=== PATIENT | female | born 1975 | race Caucasian/White ===

== ENCOUNTER 2022-08-03 09:12 | Emergency (ER) | payer BC, SELFPAY ==
[2022-08-03 09:45] VITALS: BP 114/81; PULSE 81; RESP 21; TEMP 37.1; O2SAT 100; BMI 27.5
[2022-08-03 10:18] VITALS: BP 114/81; PULSE 81; RESP 21; TEMP 37.1; O2SAT 100
--- NOTE | 2022-08-03 10:19 | EXP.UTC ---
Discharge Plan Disposition Patient Disposition: Home, Self-Care Condition: Good Prescriptions Prescriptions: New polymyxin B sulf-trimethoprim [Polytrim] 10,000 unit- 1 mg/mL drops 2 drp ophthalmic (eye) Q6H 7 Days Qty: 10 0RF Rx Instructions: right eye while awake; do not exceed 6 doses in 24 hours No Action hydroxyzine HCl 25 mg tablet 25 mg PO DAILY Label Comments: TAKE 1 TABLET BY MOUTH THREE TIMES DAILY Referrals Follow up/Referrals: Jace Langley [Primary Care Provider] - See instructions Activity Restrictions/Add. Instructions Additional Instructions/Restrictions: Use drops as prescribed Wash hands before and after applying drops to eyes Follow up with your Eye Doctor if no improvement or any worsening of symptoms Clean matting from eyes with warm water and baby shampoo Clinical Impressions Clinical Impression: Conjunctivitis Instructions Patient Instructions: Conjunctivitis, DI for Conjunctivitis Discharge ED Provider: Keshia Blake [facility] [place] HPI General Stated complaint: RT eye redness w/drainage Mode of Arrival: Ambulatory Source of Information: Patient Limitations: No Limitations Time Seen by Provider: 08/03/22 10:19 Description of Symptoms (Recalled from Triage Doc. by RN): PATIENT C/O REDNESS AND DRAINAGE TO RIGHT EYE SINCE LAST NIGHT HEENT Symptoms (Recalled from RN notes): Yes Resp Symptoms (Recalled from RN notes): No Skin Symptoms (Recalled from RN notes): No MS Symptoms (Recalled from RN notes): No Functional Status (Recalled from RN notes): WNL History of Present Illness Provider Complaint: Patient state that she has been having redness, drainage and matting in right eye since last night States that she was recently exposed to pink eye and thinks she may have it now too Related Data Home Medications Medication Instructions Recorded Confirmed hydroxyzine HCl 25 mg tablet 25 mg PO DAILY Anxiety 08/03/22 08/03/22 Previous Rx's Medication Instructions Recorded polymyxin B sulfate 10,000 2 drp ophthalmic (eye) Q6H 7 days 08/03/22 unit-trimethoprim 1 mg/mL eye #10 mL drops (Polytrim) Allergies Allergy/AdvReac Type Severity Reaction Status Date / Time epinephrine Allergy Verified 08/03/22 10:00 hydromorphone [From Dilaudid] Allergy Verified 08/03/22 10:00 NSAIDS (Non-Steroidal Allergy Verified 08/03/22 10:00 Anti-Inflamma Worker's Comp Is this a Worker's Comp case?: No [facility] Disclaimer: The information contained in this section may have been updated after the patient was seen, as this information can be updated by other users. Social History Smoking Status: Unknown if ever smoked alcohol intake: never current occupational status: employed Travel in the last 8 weeks: None ROS Obtained: Yes All systems reviewed & no additional complaints except as documented and Yes Systems reviewed as appropriate & no additional complaints except as documented Constitutional Constitutional: Reports system reviewed and no additional complaints, except as documented and Reports as per HPI Eyes Eyes: Reports system reviewed and no additional complaints, except as documented, Reports as per HPI, Reports eye discharge and Reports irritation ENT Ears, Nose, Mouth, and Throat: Reports system reviewed and no additional complaints, except as documented and Reports as per HPI Cardiovascular Cardiovascular: Reports system reviewed and no additional complaints, except as documented and Reports as per HPI Respiratory Respiratory: Reports system reviewed and no additional complaints, except as documented and Reports as per HPI Gastrointestinal Gastrointestingal: Reports system reviewed and no additional complaints, except as documented and as per HPI Physical Exam General General appearance: alert and in no apparent distress Eye Eye exam: Present conjunctival redness (right) and discharge (yellowish discharge noted right eye) Respiratory Respiratory
== END 2022-08-03 10:27 | disposition home or self-care (01) ==
PROVIDERS: Emergency Provider Nurse Practitioner; PCP Pediatrics
DX: H10.31 Unspecified acute conjunctivitis, right eye (principal)
CPT/HCPCS: 99204; 99212; G0463